=== PATIENT | male | born 2005 | race Caucasian/White ===

== ENCOUNTER 2023-07-16 21:25 | Emergency (ER) | payer OTHER ==
[2023-07-16 21:48] VITALS: BP 151/98; PULSE 100; RESP 20; TEMP 98
[2023-07-16] MEDS ORDERED: ALBUTEROL SO4 2.5/IPRATROPIUM 0.5 INH SOL 3 ML VIAL.NEB. NEB ONE (22:06)
== END 2023-07-17 00:30 | disposition home or self-care (01) ==
LOC: JERFT 21:25
DX: J45.909 Unspecified asthma, uncomplicated (principal); J20.8 Acute bronchitis due to other specified organisms; B35.3 Tinea pedis; R07.89 Other chest pain; R05.9 Cough, unspecified; Z20.822 Contact with and (suspected) exposure to COVID-19
CPT/HCPCS: 0241U-QW; 71046-TC-FY; 99284-25